=== PATIENT | male | born 1950 | race Caucasian/White ===

== ENCOUNTER 2024-05-26 18:14 | Inpatient (IN) | payer MEDICAID ==
[~2024-05-26] VITALS: Ht 167.6 cm; Wt 61.2 kg
[2024-05-26] MEDS: PIPERACILLIN/TAZO 3.375G/50ML 50 ML IV ONE (19:09)
[2024-05-26] MEDS: SODIUM CHLORIDE 0.9% (SEPSIS BOLUS) IV ONE (19:10)
[2024-05-26 19:29] LABS: HEMATOCRIT. 33.7 % (42.0-52.0); HEMOGLOBIN. 11.4 g/dL (14.0-18.0); MEAN CORPUSCULAR HEMOGLOBIN 30.8 pg (28.0-32.0); MEAN CORPUSCULAR HGB CONC 33.8 g/dL (31.0-37.0); MEAN PLATELET VOLUME 7.9 fl (7.4-10.4); PLATELET 276 x1000/uL (130-400); RED CELL DISTRIBUTION WIDTH 14.5 % (11.6-14.6); WHITE BLOOD COUNT 8.7 x1000/uL (4.5-11.0)
[2024-05-26 19:36] LABS: DIFFERENTIAL COMMENT 1
[2024-05-26 19:43] LABS: INR 1.1; PROTHROMBIN TIME 11.3 sec (9.6-11.0)
[2024-05-26] MEDS: VANCOMYCIN 1G PREMIX 200 ML IV ONE (19:46)
[2024-05-26 19:48] LABS: CHLORIDE 107 mEq/L (98-107); POTASSIUM 4.3 mEq/L (3.5-5.1); SODIUM 139 mEq/L (136-145)
[2024-05-26 19:49] LABS: CALCIUM 8.9 mg/dL (8.7-10.4); CARBON DIOXIDE 24 mEq/L (21-32)
[2024-05-26 19:54] LABS: CREATININE 0.8 mg/dL (0.6-1.3); GLUCOSE 115 mg/dL (70-105); UREA NITROGEN BLOOD 16 mg/dL (9-23)
[2024-05-26 19:55] LABS: TROPONIN I HIGH SENSITIVITY 4 ng/L (3.0-53)
[2024-05-26 19:56] LABS: ALANINE AMINOTRANSFERASE < 7 IU/L (10-49); ALBUMIN 4.1 g/dL (3.2-4.8); ASPARTATE AMINOTRANSFERASE 21 IU/L (<34); BILIRUBIN DIRECT < 0.1 mg/dL (<=3.0)
[2024-05-26 19:57] LABS: BILIRUBIN TOTAL 0.3 mg/dL (0.1-1.0); PROTEIN TOTAL 7.7 g/dL (6.0-8.3)
[2024-05-26 20:12] LABS: PLATELET ESTIMATE NORMAL
[2024-05-26 20:25] LABS: LACTIC ACID 2.1 mmol/L (0.4-2.0)
[2024-05-26] MEDS ORDERED: ACETAMINOPHEN 325MG TABLET PO PRN ×2 (21:00)
[2024-05-26] MEDS ORDERED: DOCUSATE SODIUM 100MG CAPSULE PO PRN (21:00)
[2024-05-26] MEDS ORDERED: IPRATROPIUM/ALBUTEROL 0.5-3(2.5)MG/3ML NEB HHN PRN (21:00)
[2024-05-26] MEDS ORDERED: MAGNESIUM/ALUMINUM HYDROXIDE/SIMETHICONE 30ML UDC PO PRN (21:00)
[2024-05-26] MEDS ORDERED: AZITHROMYCIN 250 MG in DEXT 5% WATER 250 ML IV SCH (21:30)
[2024-05-26 21:52] LABS: INFLUENZA TYPE A Presumptive Negative (Pres. Neg.); INFLUENZA TYPE B Presumptive Negative (Pres. Neg.)
[2024-05-26 22:00] VITALS: BP 129/80; PULSE 67; PULSE 69; RESP 17; TEMP 36.4; O2SAT 100
[2024-05-26 22:01] LABS: FERRITIN 14 ng/mL (22-322); FOLIC ACID (FOLATE) SERUM > 20.00 ng/mL (>5.38); VITAMIN B12 SERUM 504 pg/mL (211-911)
[2024-05-26 22:25] LABS: IRON 39 ug/dL (65-175)
[2024-05-26 22:26] LABS: TROPONIN I HIGH SENSITIVITY 5 ng/L (3.0-53)
[2024-05-26 22:28] LABS: PHOSPHORUS 3.3 mg/dL (2.5-4.9); TOTAL IRON BINDING CAPACITY 325 ug/dl (250-425)
[2024-05-27] VITALS: BP 138/81; PULSE 68; RESP 18; TEMP 36.3; O2SAT 97
[2024-05-27] MEDS: AZITHROMYCIN 500MG/250ML 250 ML IV SCH (00:12)
[2024-05-27] MEDS: ENOXAPARIN 40MG/0.4ML SYR SUBCUT SCH (00:13)
[2024-05-27] MEDS: DEXT 5%/LACTATED RINGERS 1,000 ML IV SCH (00:13)
[2024-05-27] MEDS: CEFTRIAXONE 2GM/50ML 50 ML IV SCH (02:16)
[2024-05-27 04:00] VITALS: BP 128/66; PULSE 64; RESP 17; TEMP 36.3; O2SAT 100
[2024-05-27 06:30] LABS: BASOPHILS % 0.4 % (0.0-2.0); EOSINOPHILS % 1.7 % (0.0-5.0); HEMATOCRIT. 33.8 % (42.0-52.0); HEMOGLOBIN. 11.2 g/dL (14.0-18.0); LYMPHOCYTES % 12.2 % (20.0-50.0); MEAN CORPUSCULAR HEMOGLOBIN 30.3 pg (28.0-32.0); MEAN CORPUSCULAR VOLUME 91.7 fL (80.0-94.0); MONOCYTES % 9.2 % (2.0-8.0); NEUTROPHILS % 76.5 % (40.0-76.0); RED BLOOD CELL COUNT 3.68 mill/uL (4.7-6.1); RED CELL DISTRIBUTION WIDTH 14.6 % (11.6-14.6); WHITE BLOOD COUNT 8.5 x1000/uL (4.5-11.0)
[2024-05-27 06:52] LABS: DIFFERENTIAL COMMENT 1
[2024-05-27 07:01] LABS: TROPONIN I HIGH SENSITIVITY 4 ng/L (3.0-53)
[2024-05-27 07:04] LABS: CREATINE KINASE 87 IU/L (46-171)
[2024-05-27 08:00] VITALS: BP 112/73; PULSE 85; RESP 20; TEMP 36.7; O2SAT 99
[2024-05-27] MEDS: PANTOPRAZOLE SODIUM 40 MG/VIAL IV SCH (09:41)
[2024-05-27] MEDS: MULTIVITAMINS,THER W-MINERALS TABLET PO SCH (09:41)
[2024-05-27] MEDS: FERROUS SULFATE 325MG TABLET PO SCH (09:41)
[2024-05-27 10:20] LABS: BG BASE EXCESS -2.8 mmol/L (-2.0-3.0); BG CARBOXYHEMOGLOBIN 0.8 % (0.5-1.5); BG DEOXYHEMOGLOBIN 2.1 % (0.0-5.0); BG FRACTION INSPIRED OXYGEN 28; BG HCO3 ACT 21.2 mmol/L (21.0-28.0); BG METHEMOGLOBIN 0.3 % (0.5-1.5); BG OXYGEN SATURATION 97.9 % (94.0-98.0); BG OXYHEMOGLOBIN 96.8 % (94.0-98.0); BG PCO2 34.7 mmHg (35.0-48.0); BG PH 7.404 (7.350-7.450); BG PO2 102.2 mmHg (83.0-108.0); BG SAMPLE SITE LEFT RADIAL; BG TOTAL HEMOGLOBIN 13.6 g/dL (13.5-17.5); BG VENT MODE NASAL CANNULA
[2024-05-27 10:25] LABS: PLATELET 182 x1000/uL (130-400)
[2024-05-27 12:00] VITALS: BP 125/66; PULSE 78; RESP 18; TEMP 36.7; O2SAT 100
[2024-05-27 12:58] LABS: ALANINE AMINOTRANSFERASE 15 IU/L (10-49); ALBUMIN 4.3 g/dL (3.2-4.8); ASPARTATE AMINOTRANSFERASE 18 IU/L (<34); BILIRUBIN DIRECT 0.1 mg/dL (<=3.0); BILIRUBIN TOTAL 0.5 mg/dL (0.1-1.0); PROTEIN TOTAL 8.1 g/dL (6.0-8.3)
[2024-05-27 16:00] VITALS: BP 128/74; PULSE 81; RESP 18; TEMP 37.1; O2SAT 98
[2024-05-27] MEDS: ONDANSETRON HCL 4MG/2ML INJ IV PRN (18:16)
[2024-05-27] MEDS: GUAIFENESIN 200MG/10ML SUGAR FREE UDC PO PRN (18:20)
[2024-05-27 20:00] VITALS: BP 143/79; PULSE 84; RESP 18; TEMP 37.3; O2SAT 97
[2024-05-27 20:50] LABS: CHLORIDE 108 mEq/L (98-107); POTASSIUM 3.8 mEq/L (3.5-5.1); SODIUM 139 mEq/L (136-145)
[2024-05-27 20:51] LABS: CALCIUM 8.8 mg/dL (8.7-10.4); CARBON DIOXIDE 24 mEq/L (21-32)
[2024-05-27 20:56] LABS: CREATININE 0.7 mg/dL (0.6-1.3); GLUCOSE 92 mg/dL (70-105); TRIGLYCERIDE 52 mg/dL (0-150); UREA NITROGEN BLOOD 10 mg/dL (9-23)
[2024-05-27 20:57] LABS: LDL CHOLESTEROL 98 mg/dL (5-100); TROPONIN I HIGH SENSITIVITY 9 ng/L (3.0-53)
[2024-05-27 20:58] LABS: CHOLESTEROL 172 mg/dL (<200); CREATINE KINASE 141 IU/L (46-171); HDL CHOLESTEROL 57 mg/dL (>55)
[2024-05-27 21:00] LABS: THYROID STIMULATING HORMONE 17.12 uIU/mL (0.55-4.78)
[2024-05-28] VITALS: BP 129/71; PULSE 83; RESP 18; TEMP 36.9; O2SAT 96
[2024-05-28 04:00] VITALS: BP 148/83; PULSE 75; RESP 16; TEMP 37.2; O2SAT 99
[2024-05-28 08:00] VITALS: BP 156/81; PULSE 67; RESP 20; TEMP 36.9; O2SAT 97
[2024-05-28] MEDS: CLONIDINE 0.1MG TABLET PO PRN (08:39)
[2024-05-28 12:00] VITALS: BP 155/87; PULSE 64; RESP 20; TEMP 36.7; O2SAT 99
[2024-05-28 12:26] LABS: CHLORIDE 106 mEq/L (98-107); POTASSIUM 3.9 mEq/L (3.5-5.1); SODIUM 140 mEq/L (136-145)
[2024-05-28 12:27] LABS: CALCIUM 9.3 mg/dL (8.7-10.4); CARBON DIOXIDE 28 mEq/L (21-32)
[2024-05-28 12:32] LABS: CREATININE 0.7 mg/dL (0.6-1.3); GLUCOSE 97 mg/dL (70-105); UREA NITROGEN BLOOD 9 mg/dL (9-23)
[2024-05-28 16:00] VITALS: BP 131/69; PULSE 70; RESP 20; TEMP 36.9; O2SAT 99
[2024-05-28] MEDS ORDERED: CARB-31 MT (17:42)
[2024-05-28] MEDS ORDERED: DULO60CA64 MT (17:42)
[2024-05-28] MEDS ORDERED: OXYC-662 MT (17:42)
[2024-05-28] MEDS ORDERED: METH-773 MT (17:42)
[2024-05-28] MEDS ORDERED: LEVO25TA7 MT (17:42)
[2024-05-28] MEDS ORDERED: CLON0.5T23 MT (17:42)
[2024-05-28 20:00] VITALS: BP 115/76; PULSE 65; RESP 16; TEMP 36.2; O2SAT 98
[2024-05-28] MEDS: CEFTRIAXONE 2GM/50ML 50 ML IV SCH (21:54)
[2024-05-29] VITALS: BP 151/90; PULSE 66; RESP 16; TEMP 36.8; O2SAT 96
[2024-05-29 04:00] VITALS: BP 163/91; PULSE 71; RESP 16; TEMP 36.4; O2SAT 99
[2024-05-29 07:15] LABS: CARBON DIOXIDE 28 mEq/L (21-32); CHLORIDE 107 mEq/L (98-107); SODIUM 141 mEq/L (136-145)
[2024-05-29 07:16] LABS: CALCIUM 9.7 mg/dL (8.7-10.4)
[2024-05-29 07:19] LABS: CREATININE 0.6 mg/dL (0.6-1.3)
[2024-05-29 07:20] LABS: GLUCOSE 88 mg/dL (70-105)
[2024-05-29 07:21] LABS: T4 FREE 0.82 ng/dL (0.89-1.76); UREA NITROGEN BLOOD 9 mg/dL (9-23)
[2024-05-29 08:00] VITALS: BP 143/76; PULSE 66; RESP 16; TEMP 36.7; O2SAT 96
[2024-05-29] MEDS ORDERED: OXYCODONE HCL 5MG TABLET PO PRN (08:15)
[2024-05-29] MEDS ORDERED: NALOXONE HCL 0.4MG/ML VIAL IV PRN (08:30)
[2024-05-29] MEDS ORDERED: LEVODOPA MT SCH (09:00)
[2024-05-29] MEDS ORDERED: CARBIDOPA MT SCH (09:00)
[2024-05-29] MEDS ORDERED: [UNRECOGNIZED DRUG - OTHER] MT SCH (09:00)
[2024-05-29] MEDS: LEVOTHYROXINE SODIUM 25MCG TABLET PO SCH (10:01)
[2024-05-29] MEDS: FAMOTIDINE 20MG/2ML VIAL IV SCH (10:01)
[2024-05-29] MEDS: METHOCARBAMOL 500MG TABLET PO SCH (10:01)
[2024-05-29] MEDS: DULOXETINE HCL 60MG DR CAPSULE PO SCH (10:01)
[2024-05-29 12:00] VITALS: BP 131/72; PULSE 64; RESP 17; TEMP 35.7; O2SAT 95
[2024-05-29] MEDS ORDERED: CLON0.5T4 PO (12:17)
[2024-05-29] MEDS ORDERED: LEVO750T68 MT (12:17)
[2024-05-29] MEDS ORDERED: FERR-63 PO (12:17)
[2024-05-29] MEDS: CARBIDOPA/LEVODOPA 10/100MG TABLET PO SCH (13:33)
[2024-05-29 16:00] VITALS: BP 128/70; PULSE 68; RESP 18; TEMP 35.7; O2SAT 97
[2024-05-29 20:00] VITALS: BP 128/67; PULSE 60; RESP 16; TEMP 36.2; O2SAT 100
[2024-05-29] MEDS ORDERED: MEDICATION NOT ON FORMULARY EA (Clonazepam 1 TAB) MT SCH (21:00)
[2024-05-29] MEDS: AZITHROMYCIN 500 MG TABLET PO SCH (21:42)
[2024-05-29] MEDS: CLONAZEPAM 0.5MG TABLET PO SCH (21:42)
[2024-05-30] VITALS: BP 106/61; PULSE 74; RESP 16; TEMP 36.6; O2SAT 98
[2024-05-30 04:00] VITALS: BP 135/85; PULSE 64; RESP 17; TEMP 36.3; O2SAT 96
[2024-05-30 08:00] VITALS: BP 116/72; PULSE 82; RESP 20; TEMP 36.9; O2SAT 100
[2024-05-30 12:00] VITALS: BP 114/82; PULSE 73; RESP 18; TEMP 36.7; O2SAT 98
[2024-05-30 16:00] VITALS: BP 139/79; PULSE 32; RESP 18; TEMP 36.6; O2SAT 98
[2024-05-30 16:42] VITALS: BP 134/79; PULSE 62; TEMP 97.9; O2SAT 98
== END 2024-05-30 17:24 | DRG 720 ==
LOC: ER 18:14 → EDBEDREQ 18:42 → 5WST 20:35 → EDBEDREQ 20:41 → EDBEDREQTM 20:41 → 7EST 05-29 11:55
PROVIDERS: ADMIT Hospitalist; ATTEND Hospitalist
DX: A41.9 Sepsis, unspecified organism (principal); J96.01 Acute respiratory failure with hypoxia; G92.8 Other toxic encephalopathy; E87.20 Acidosis, unspecified; J18.9 Pneumonia, unspecified organism; G90.89 Other disorders of autonomic nervous system; Z20.822 Contact with and (suspected) exposure to COVID-19; G20.A1 Parkinson's disease without dyskinesia, without mention of fluctuations; F02.80 Dementia in other diseases classified elsewhere, unspecified severity, without behavioral disturbance, psychotic disturbance, mood disturbance, and anxiety; D64.9 Anemia, unspecified; Z82.49 Family history of ischemic heart disease and other diseases of the circulatory system
CPT/HCPCS: 36415; 36600; 71045; 80048; 80061; 80076; 82375; 82550; 82607; 82728; 82746; 82805; 83036; 83540; 83550; 83605; 83735; 83880; 84100; 84145; 84439; 84443; 84484; 85025; 85044; 85379; 85651; 86850; 86900; 87426; 87804; 93005; 93306; 97162; 97167; 99291; J0456; J0696; J1650; J2405; J2470; J2543; J3370; J3490; J7030